=== PATIENT | male | born 1955 | race African-American/Black ===

== ENCOUNTER 2020-07-05 10:41 | Emergency (ER) | payer MEDICARE ==
[~2020-07-05] VITALS: Ht 182.9 cm; Wt 122.5 kg
--- NOTE | 2020-07-05 10:53 | Emergency Room Report ---
History of Present Illness General Chief Complaint: Lower Extremity Injury Source: Patient, EMS Present Illness HPI Disclaimer: Please note that this report is being documented using DRAGON technology. This can lead to erroneous entry secondary to incorrect interpretation by the dictating instrument. HPI: 65-year-old male presents for evaluation of right hip pain. Patient states he has chronic pain in the lower extremities but this morning woke up and unable to get out of bed due to pain in the right hip that radiates down to the knee and into the toes. Denies pain in the back. Denies fever or chills. He states he has had this pain for some time but acutely worsened. No injury reported. He states he was recently at another hospital for unspecified kidney issue. Continues to urinate. Denies numbness or tingling. Denies weakness in lower extremity but reports limitation in range of motion secondary to pain. Denies fever or chills. Denies abdominal pain, nausea or vomiting. PMH: Obesity, kidney disease PSH: Bilateral knee replacements Allergies: Reviewed Social Hx: Reviewed Allergies: Coded Allergies: No Known Allergies (Unverified , 07/05/20) COVID-19 Screening Contact w/high risk pt: No Experienced COVID-19 symptoms?: No COVID-19 Testing performed INTERACTIVE MEDIA DIRECTOR: Yes COVID-19 Screening: Negative COVID-19 COVID-19 Testing Source: [facility] Nursing Documentation-PMH Past Medical History: No History, Except For Hx Hypertension: Yes Review of Systems All Other Systems: negative except mentioned in HPI Physical Exam Vital Signs Date Time Temp Pulse Resp B/P (MAP) Pulse Ox O2 Delivery O2 Flow Rate FiO2 07/05/20 10:30 98.8 101 20 98/68 (78) 91 Room Air General: Awake and alert, no acute distress HEENT: NC/AT. EOMI. Cardiovascular: RRR. S1 and S2 normal. No murmur appreciated Resp: Normal work of breathing. No cough, wheezing or crackles appreciated Abdomen: Abdomen is soft, nondistended. Nontender. No flank tenderness. Skin: Intact. Surgical scar over the knees clean dry and intact MSK: Normal tone and bulk. Moving all extremities. No obvious deformity. Pelvis is stable. Pain with lateral compression. Pain with passive range of motion. Neuro: Awake and alert. Mentating appropriately. Medical Decision Making Diagnostic Impression: Primary Impression: Right hip pain Additional Impression: CKD (chronic kidney disease) ER Course 65-year-old male presents with pain in the right hip. Labs elevation in BUN and creatinine consistent with the patient's new diagnosis of kidney disease. X- rays of the right hip and pelvis show osteophyte changes but no fracture or dislocation identified. Patient refusing to give urine. Little concern for pyelonephritis at this time as he has no flank pain most of his pain centered around the hip joint itself. Would benefit from outpatient orthopedic evaluation. Also recommended diet and weight loss as I believe his obesity is contributing to his symptoms. Patient has pain medication at home as prescribed by his PMD. Instructed to follow-up with his PMD for referral to assist physical therapist as well. Will discharge with outpatient follow-up. Return precautions discussed Laboratory Tests Test 07/05/20 10:50 Sodium Level 144 MMOL/L (136-145) Potassium Level 3.9 MMOL/L (3.5-5.1) Chloride Level 107 MMOL/L (98-107) Carbon Dioxide Level 26 MMOL/L (21-32) Anion Gap 11 mmol/L (5-15) Blood Urea Nitrogen 22 mg/dL (7-18) H Creatinine 2.7 MG/DL (0.55-1.30) H Estimated Glomerular Filtration Rate 23.8 mL/min (>60) Glucose Level 127 MG/DL (74-106) H Calcium Level 8.7 MG/DL (8.5-10.1) Other X-Ray Diagnostic Results Other X-Ray Diagnostic Results : X-Ray ordered: Right hip and pelvis # of Views/Limited Vs Complete: Complete Indication: Pain EP Interpretation: Yes Interpretation: no dislocation, no soft tissue swelling, no fractures Impression: No acute disease Electronically Signed by: Electronically signed by Dr. Ian Juares MD Last Vital Signs Date Time Temp Pulse Resp B/P (MAP) Pulse Ox O2 Delivery O2 Flow Rate FiO2 07/05/20 10:30 98.8 101 20 98/68 (78) 91 Room Air Disposition: HOME, SELF-CARE Condition: Stable Ian Juares MD Jul 05, 2020 10:53
[2020-07-05] MEDS ORDERED: Morphine Sulfate 4mg/ml Inj (IV USE ONLY) IVP ONE (11:30)
[2020-07-05 11:31] LABS: CALCIUM 8.7 MG/DL (8.5-10.1); CREATININE 2.7 MG/DL (0.55-1.30); POTASSIUM 3.9 MMOL/L (3.5-5.1)
--- NOTE | 2020-07-05 14:00 | NUR ---
NUrses note: 1250 Patient requesting water and wanting nurse to feed him the water. Patient is competent of drinking water for himself, when given the water, patient threw the water the floor and said that he could not hold it. 1300 Nurse attempting to administer medication but IV was not patent. Reported to the patient that she needed to start another IV, patient became belligerent and called the nurse " a lazy bitch!" Patient has not been willing to do anything for himself in his stay- unwilling to give urine sample, hold a bottle of water and been disrespectful. 1400 He has been discharged by MD to follow up with his primary.
[2020-07-05 14:24] VITALS: BP 136/85
--- NOTE | 2020-07-05 16:55 | Diagnostic Imaging Report ---
Indication: Right hip and pelvic pain Technique: One view the pelvis, 2 views of the right hip Comparison: none Findings: There is somewhat limited by body habitus. There are mild degenerative proliferative changes of the right hip joint. There is mild degenerative narrowing of the left hip joint. No acute fracture. No dislocation. Impression: Mild degenerative changes. No acute bony trauma
== END 2020-07-05 14:00 | disposition home or self-care (01) ==
LOC: EDBD 10:41 → EMR 12:53
DX: M25.551 Pain in right hip (principal); I12.9 Hypertensive chronic kidney disease with stage 1 through stage 4 chronic kidney disease, or unspecified chronic kidney disease; N18.9 Chronic kidney disease, unspecified; Z96.653 Presence of artificial knee joint, bilateral; E66.9 Obesity, unspecified; Z68.36 Body mass index [BMI] 36.0-36.9, adult
CPT/HCPCS: 73502; 80048; 96374; 99284; J2270